=== PATIENT | female | born 1960 | race Caucasian/White ===

== ENCOUNTER 2018-01-21 20:13 | Emergency (ER) | payer BC, OTHER ==
[~2018-01-21] VITALS: Ht 162.6 cm; Wt 107.0 kg
[2018-01-21 20:18] VITALS: BP 169/81; PULSE 75; RESP 16; TEMP 98.4; O2SAT 99
[2018-01-21] MEDS ORDERED: CALC1TAB12 PO (20:33)
[2018-01-21] MEDS ORDERED: ROSU1TAB4 PO (20:33)
[2018-01-21] MEDS ORDERED: PLAQ200T PO (20:33)
[2018-01-21] MEDS ORDERED: SPIR25TA PO (20:33)
[2018-01-21] MEDS ORDERED: TOFA5TAB PO (20:33)
[2018-01-21] MEDS ORDERED: MULTTAB67 PO (20:33)
[2018-01-21] MEDS ORDERED: ATEN25TA PO (20:33)
[2018-01-21] MEDS ORDERED: VENTAER INH (20:33)
[2018-01-21] MEDS ORDERED: DICL1GEL7 TOPICAL (20:33)
[2018-01-21] MEDS ORDERED: FOLI800T PO (20:33)
[2018-01-21] MEDS ORDERED: PROT40TA PO (20:33)
[2018-01-21] MEDS ORDERED: NEUR300C PO (20:33)
[2018-01-21] MEDS ORDERED: CETI5TAB2 PO (21:33)
--- NOTE | 2018-01-21 21:33 | PD ---
HPI Chief Complaint: Skin Problem Time Seen by Provider: 21:31 Travel History International Travel<30 days: No Contact w/Intl Traveler<30days: No Traveled to known affect area: No History of Present Illness HPI This is a 57-year-old female presents to the ER for burning sensation on the left flank area. Patient has history of shingles in the past. Symptoms started 2 days ago and she is afraid that she might have shingles again which prompted her to come to the ER. Patient denies any fever chills or night sweats she has no neurological symptoms. No weakness or sensory loss. PFSH Past Medical History Arthritis: Yes (RA) Asthma: Yes Cardiovascular Problems: Yes ([place] WHITE) Diminished Hearing: No Fibromyalgia: Yes Genitourinary: Yes (STAGE 2 KIDNEY DISEASE) Hypertension: Yes Immunizations Current: Yes Tetanus Vaccination: Unknown Influenza Vaccination: Yes ?: Not Tubal Ligation: Yes Past Surgical History Abdominal Surgery: Yes Appendectomy: Yes Cholecystectomy: Yes Social History Alcohol Use: Yes (1 DALILY) Tobacco Use: No Substance Use: No Allergies-Medications (Allergen,Severity, Reaction): Coded Allergies: Penicillins (Verified Allergy, Severe, hives, 01/21/18) hydrocodone (Verified Allergy, Intermediate, itching, 01/21/18) Reported Meds & Prescriptions Reported Meds & Active Scripts Active Valacyclovir (Valacyclovir HCl) 1,000 Mg Tab 1,000 Mg PO TID 7 Days Reported Rosuvastatin (Rosuvastatin Calcium) 5 Mg Tab 5 Mg PO DAILY Diclofenac Topical 1% Gel 1 Applic TOPICAL QID Ventolin Hfa 18 GM Inh (Albuterol Sulfate) 90 Mcg/Act Aer 1 Puff INH Q4H PRN Multiple Vitamin 1 Tab 1 Tab PO DAILY Calcium 500 +D (Calcium Carbonate-Cholecalciferol) 500-400 Mg-Unit Tab 1 Tab PO TID Xeljanz (Tofacitinib) 5 Mg Tab 5 Mg PO BID Spironolactone 25 Mg Tab 25 Mg PO DAILY Atenolol 25 Mg Tab 25 Mg PO DAILY Protonix (Pantoprazole Sodium) 40 Mg Tab 40 Mg PO DAILY Folic Acid 0.8 Mg Tab 1 Mg PO DAILY Plaquenil (Hydroxychloroquine Sulfate) 200 Mg Tab 200 Mg PO BID Take with food Neurontin (Gabapentin) 300 Mg Cap 300 Mg PO BID Review of Systems Except as stated in HPI: all other systems reviewed are Neg Physical Exam Narrative GENERAL: Alert oriented 3 no acute distress SKIN: Focused skin assessment warm/dry. HEAD: Atraumatic. Normocephalic. EYES: Pupils equal and round. No scleral icterus. No injection or drainage. ENT: No nasal bleeding or discharge. Mucous membranes pink and moist. NECK: Trachea midline. No JVD. CARDIOVASCULAR: Regular rate and rhythm. No murmur appreciated. RESPIRATORY: No accessory muscle use. Clear to auscultation. Breath sounds equal bilaterally. GASTROINTESTINAL: Abdomen soft, non-tender, nondistended. Hepatic and splenic margins not palpable. MUSCULOSKELETAL: No obvious deformities. No clubbing. No cyanosis. No edema. NEUROLOGICAL: Awake and alert. No obvious cranial nerve deficits. Motor grossly within normal limits. Normal speech. PSYCHIATRIC: Appropriate mood and affect; insight and judgment normal. Data Data Last Documented VS Vital Signs Date Time Temp Pulse Resp B/P (MAP) Pulse Ox O2 Delivery O2 Flow Rate FiO2 01/21/18 20:18 98.4 75 16 169/81 (110) 99 Orders Orders Ed Discharge Order (01/21/18 21:33) MDM Medical Decision Making Medical Screen Exam Complete: Yes Emergency Medical Condition: Yes Differential Diagnosis Early shingles. Narrative Course This is a 57-year-old female presented to the ER for possible shingles. Symptoms including burning and pain sensation on the left flank. Patient has history of shingles in the past. Patient does not have any rashes at the moment. Patient will be given a prescription for try valacyclovir and they recommended that she follow-up with her primary care physician. Patient is stable to be discharged. I discussed with the patient the side effects of the medication and she agrees to take the medicine since she is afraid to develop rash. Patient understands her condition and agrees with plan of care. Diagnosis Primary Impression: Shingles Qualified Codes: B02.9 - Zoster without complications Additional Instructions: Follow-up with primary care physician and return to ER if symptoms change or are not improved. Scripts Valacyclovir (Valacyclovir) 1,000 Mg Tab 1000 MG PO TID for Mgmt Viral Infection for 7 Days, #21 TAB 0 Refills Prov: Myron Soliz MD 01/21/18 Disposition: 01 DISCHARGE HOME Condition: Stable Myron Soliz MD Jan 21, 2018 21:33
[2018-01-21] MEDS ORDERED: VALA1TAB PO (21:37)
== END 2018-01-21 21:46 | disposition home or self-care (01) ==
LOC: PHEFT 20:13
DX: B02.9 Zoster without complications (principal); M06.9 Rheumatoid arthritis, unspecified; J45.909 Unspecified asthma, uncomplicated; I45.6 Pre-excitation syndrome; M79.7 Fibromyalgia; I12.9 Hypertensive chronic kidney disease with stage 1 through stage 4 chronic kidney disease, or unspecified chronic kidney disease; N18.2 Chronic kidney disease, stage 2 (mild); Z79.899 Other long term (current) drug therapy; Z88.0 Allergy status to penicillin
CPT/HCPCS: 99283